=== PATIENT | female | born 1970 | race American Indian/Alaskan Native ===

== ENCOUNTER 2019-12-02 18:53 | Emergency (ER) | payer SELFPAY ==
[2019-12-02 19:57] VITALS: BP 141/55
[2019-12-02 21:05] LABS: Bilirubin,Urine NEG (Negative); Blood,Urine NEG (Negative); Color,Urine Yellow (Yellow); Mucus,Urine 1+ /HPF; Protein,Urine <15 mg/dL mg/dL (Negative); WBC,Urine < 1.0 /HPF (0.0-6.0)
[2019-12-02 21:09] LABS: HCG Qualitative,Urine Negative (Negative)
== END 2019-12-02 22:18 | disposition left against medical advice (07) ==
LOC: ED 18:53
DX: M54.5 Low back pain (principal); Z53.21 Procedure and treatment not carried out due to patient leaving prior to being seen by health care provider
CPT/HCPCS: 81001; 81025